=== PATIENT | female | born 1995 | race African-American/Black ===

== ENCOUNTER 2018-07-31 16:31 | Emergency (ER) | payer SELFPAY ==
--- NOTE | 2018-07-31 16:55 | ER Document Report ---
ED Medical Screen (RME) - General Chief Complaint: Vag Bleeding, +preg <12wks Stated Complaint: ABDOMINAL CRAMPING Time Seen by Provider: 07/31/18 16:49 Primary Care Provider: WALLACE HENRY MD [Primary Care Provider] - Follow up as needed Mode of Arrival: Ambulatory Information source: Patient Notes: Patient is a 23-year-old female who presents to the emergency department with complaints of low abdominal cramping. She states that she has had a positive test, states her last period was the end of May. Patient has not had any care yet as she states she just found out she was today. Patient also reports some white vaginal discharge that is not normal for her. She reports nausea over the last several weeks but denies any vomiting. Exam: Abdomen soft, nontender with no guarding and no rebound. I have greeted and performed a rapid initial assessment of this patient. A comprehensive ED assessment and evaluation of the patient, analysis of test results and completion of the medical decision making process will be conducted by additional ED providers. Dictation of this chart was performed using voice recognition software; therefore, there may be some unintended grammatical errors. TRAVEL OUTSIDE OF THE [place] IN LAST 30 DAYS: No - Related Data Allergies/Adverse Reactions: epinephrine [Epinephrine] Allergy (Verified 07/31/18 16:36) Past Medical History - Social History Drug Abuse: Marijuana Renal/ Medical History: Denies: Hx Peritoneal Dialysis Past Surgical History: Reports: Hx Orthopedic Surgery - Immunizations Hx Diphtheria, Pertussis, Tetanus Vaccination: Yes Physical Exam - Vital signs Vitals: Temp Pulse Resp BP Pulse Ox 98.3 F 69 16 122/52 L 100 07/31/18 16:40 07/31/18 16:40 07/31/18 16:40 07/31/18 16:40 07/31/18 16:40 Course - Vital Signs Vital signs: Temp Pulse Resp BP Pulse Ox 98.3 F 69 16 122/52 L 100 07/31/18 16:40 07/31/18 16:40 07/31/18 16:40 07/31/18 16:40 07/31/18 16:40 Doctor's Discharge - Discharge Referrals: WALLACE HENRY MD [Primary Care Provider] - Follow up as needed
[2018-07-31 17:26] LABS: ABSOLUTE BASOPHILS # (AUTO) 0.1 10^3/uL (0.0-0.2); ABSOLUTE EOSINOPHILS # (AUTO) 0.1 10^3/uL (0.0-0.6); ABSOLUTE LYMPHOCYTES (AUTO) 1.9 10^3/uL (0.5-4.7); ABSOLUTE MONOCYTES (AUTO) 0.3 10^3/uL (0.1-1.4); ABSOLUTE NEUT (AUTO) 3.6 10^3/uL (1.7-8.2); BASOPHILS % (AUTO) 1.1 % (0-2); EOSINOPHILS % (AUTO) 0.9 % (0-6); HEMATOCRIT 38.6 % (36.0-47.0); HEMOGLOBIN 13.1 g/dL (12.0-15.5); LYMPHOCYTES % (AUTO) 32.5 % (13-45); MEAN CORPUSCULAR HEMOGLOBIN 29.1 pg (27.0-33.4); MEAN CORPUSCULAR HGB CONC 33.8 g/dL (32.0-36.0); MEAN CORPUSCULAR VOLUME 86 fl (80-97); MONOCYTES % (AUTO) 4.6 % (3-13); PLATELET COUNT 297 10^3/uL (150-450); RED CELL DISTRIBUTION WIDTH 12.8 % (11.5-14.0); SEGMENTED NEUTROPHILS % (AUTO) 60.9 % (42-78); TOTAL CELLS COUNTED % (AUTO) 100 %; WHITE BLOOD COUNT 5.9 10^3/uL (4.0-10.5)
[2018-07-31 18:01] LABS: APPEARANCE,URINE SLIGHTLY-CLOUDY; BILIRUBIN,URINE NEGATIVE (NEGATIVE); COLOR,URINE YELLOW; GLUCOSE, URINE NEGATIVE (NEGATIVE); KETONES,URINE NEGATIVE (NEGATIVE); LEUKOCYTE ESTERASE,URINE NEGATIVE (NEGATIVE); NITRITE,URINE NEGATIVE (NEGATIVE); PROTEIN,URINE NEGATIVE (NEGATIVE); URINE SPECIFIC GRAVITY 1.023
--- NOTE | 2018-07-31 18:46 | ER Document Report ---
Addendum entered and electronically signed by SARAH PINK PA-C 07/31/18 21:01: Discharge - Discharge Clinical Impression: Pelvic cramping, First trimester Condition: Good Disposition: HOME, SELF-CARE Instructions: Pelvic Pain in and Round Ligament Pain ([facility]) Additional Instructions: Please arrange for follow-up in [place] with sugar sampler. He will likely need your levels checked within 3-5 days but they may elect to wait even later. Forms: Special Work Note Referrals: WALLACE HENRY MD [ACTIVE STAFF] - Follow up as needed Original Note: ED General - General Chief Complaint: Vag Bleeding, +preg <12wks Stated Complaint: ABDOMINAL CRAMPING Time Seen by Provider: 07/31/18 16:49 Primary Care Provider: WALLACE HENRY MD [ACTIVE STAFF] - Follow up as needed Mode of Arrival: Ambulatory TRAVEL OUTSIDE OF THE [place] IN LAST 30 DAYS: No - HPI Patient complains to provider of: Abdominal cramping, positive test, early Onset: Yesterday Onset/Duration: Gradual Quality of pain: Cramping Severity: Mild Pain Level: 1 Associated symptoms: denies: Chills, Fever Exacerbated by: Denies Relieved by: Denies Similar symptoms previously: No Recently seen / treated by doctor: No Notes: 23-year-old -[place] female coming in today with lower pelvic cramping and a positive test. Denies vaginal bleeding. - Related Data Allergies/Adverse Reactions: epinephrine [Epinephrine] Allergy (Verified 07/31/18 16:36) Past Medical History - General Information source: Patient - Social History Smoking Status: Current Some Day Smoker Drug Abuse: Marijuana Family History: Reviewed & Not Pertinent Patient has suicidal ideation: No Patient has homicidal ideation: No Renal/ Medical History: Denies: Hx Peritoneal Dialysis Past Surgical History: Reports: Hx Orthopedic Surgery - Immunizations Hx Diphtheria, Pertussis, Tetanus Vaccination: Yes Review of Systems - Review of Systems Notes: Constitutional: No fevers. No chills. EENT: No eye redness. No eye pain. No ear pain. No sore throat. Cardiovascular: No chest pain. No palpitations. Respiratory: No cough. No shortness of breath. No respiratory distress. Gastrointestinal: No abdominal pain. No nausea, vomiting, or diarrhea. Genitourinary: Positive for pelvic cramping. Negative for vaginal bleeding Musculoskeletal: Atraumatic. No swelling. No deformities. Skin: No rash or lesions. Lymphatic: No swollen lymph nodes. Neurologic: No headache. No syncope. Psychiatric: No suicidal or homicidal ideation. Physical Exam - Vital signs Vitals: Temp Pulse Resp BP Pulse Ox 98.3 F 69 16 122/52 L 100 07/31/18 16:40 07/31/18 16:40 07/31/18 16:40 07/31/18 16:40 07/31/18 16:40 - Notes Notes: General: Well-developed, well-nourished. In no acute distress. Non-toxic appearing. Cardiac: Well-perfused. Regular rate and rhythm. No murmurs, rubs, or gallops. Pulmonary: No respiratory distress. No cyanosis. Bilateral lung fiels are clear to auscultation. Abdominal: Non-distended. Non-rigid. Bowels sounds are present in all four quadrants. No guarding or rebound. HEENT: Head is atraumatic. Conjunctivae not reddened. No tearing. PERRL. EOMI. Orbits atraumatic. No periorbital swelling or erythema. Oropharynx is without erythema, swelling, or exudates. Neck: Supple. No adenopathy. No meningismus. Dermatologic: Warm with good turgor. No rash. Atraumatic. Chest: Atraumatic. No chest wall tenderness to palpation. Musculoskeletal: Moves all extremities well. No range of motion deficits. no muscular or joint tenderness. No paraspinal muscle tenderness. no midline spinal tenderness or step-off. Genitourinary: Chaperoned by Clara. External genitalia normal. Speculum exam reveals small amount of white colored vaginal discharge. Cervix is noninflamed. Bimanual exam reveals no adnexal masses or tenderness. No cervical motion tenderness is present. Neurologic: No gross neurologic deficits. Psychiatric: Normal mood. Course - Re-evaluation Re-evalutation: 07/31/18 18:44 Had a long discussion with the patient about her extremely low hCG. Most likely not going to see anything today, but will check and see if there is any indication of intrauterine evidence. Ectopic is still on the differential and the patient is aware. 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 She understands that because of the low level of hCG that it will probably take several days for her numbers to be high enough to identify definite . 07/31/18 20:44 There is a thickened endometrium but no gestational sac, as we expected probably too early to see this. 07/31/18 20:45 Wet mount does not look suggestive of anything in particular. Clinically, patient does not have an STD and definitely does not have PID. She does understand that she will need to have this hCG level rechecked. Given that she lives in [place], she will call up there to set up an appointment in the next 3-5 days to get her hCG level rechecked or whenever the sugar sampler wants her to get it rechecked and to get a follow-up ultrasound. - Vital Signs Vital signs: Temp Pulse Resp BP Pulse Ox 98.3 F 69 16 122/52 L 100 07/31/18 16:40 07/31/18 16:40 07/31/18 16:40 07/31/18 16:40 07/31/18 16:40 - Laboratory Result Diagrams: 07/31/18 17:01 Laboratory results interpreted by me: 07/31/18 07/31/18 16:59 17:27 Beta HCG, Quant 108.87 H Urine Urobilinogen 2.0 H Discharge - Discharge Clinical Impression: Pelvic cramping, First trimester Condition: Good Disposition: HOME, SELF-CARE Instructions: Pelvic Pain in and Round Ligament Pain ([facility]) Additional Instructions: Please arrange for follow-up in [place] with sugar sampler. He will likely need your levels checked within 3-5 days but they may elect to wait even later. Referrals: WALLACE HENRY MD [ACTIVE STAFF] - Follow up as needed
[2018-07-31 18:52] LABS: BACTERIA (WET MOUNT) 3+ BACTERIA SEEN; RBCS (WET MOUNT) RARE RBCS SEEN; T.VAGINALIS (WET MOUNT) NO TRICHOMONAS SEEN; WBCS (WET MOUNT) FEW WBCS SEEN; YEAST (WET MOUNT) NO YEAST SEEN
[2018-07-31 20:18] LABS: CHLAM PCR NOT DETECTED (NOT DETECT); GON PCR NOT DETECTED (NOT DETECT)
--- NOTE | 2018-07-31 20:36 | RADIOLOGY REPORT (SQ) ---
EXAM DESCRIPTION: [facility]: US TRANSVAGINAL CLINICAL HISTORY: 23 years Female; crampng early preg Beta-hCG 108 TECHNIQUE: endovaginal pelvic ultrasound was performed. COMPARISON: None. FINDINGS: Uterus: 8 x 4.1 x 5.4 cm The endometrial canal is maximum 2 cm thick. However, no gestational sac or other discrete endometrial structures are identified. Cervix is 3.5 cm long. Right ovary: 3.8 x 2.1 x 5.2 cm with a 1.1 x 0.7 x 1 cm dominant follicle. Normal vascular flow on Doppler. Left ovary: 2.7 x 2.3 x 2.1 cm. Normal vascular flow on Doppler. No free fluid. No adnexal masses. IMPRESSION: 1. Endometrial canal is thickened, but no gestational sac is identified. Based on beta-hCG, this is likely too early to visualize a gestational sac. 2. No adnexal masses. No ovarian torsion.
[2018-07-31 21:07] VITALS: BP 109/64
== END 2018-07-31 21:08 | disposition home or self-care (01) ==
LOC: ER 16:31
DX: O26.891 Other specified pregnancy related conditions, first trimester (principal); R10.2 Pelvic and perineal pain; O99.331 Smoking (tobacco) complicating pregnancy, first trimester; O99.321 Drug use complicating pregnancy, first trimester; F12.10 Cannabis abuse, uncomplicated; Z3A.00 Weeks of gestation of pregnancy not specified; Z88.8 Allergy status to other drugs, medicaments and biological substances
CPT/HCPCS: 36415; 76817; 81001; 84702; 85025; 87210; 87491; 87591; 93976; 99284

== ENCOUNTER → 2018-11-26 | Outpatient (CLI) | payer SELFPAY ==
--- NOTE | 2018-11-26 16:09 | RADIOLOGY REPORT (SQ) ---
EXAM DESCRIPTION: U/S OB 14+ TRNABD 1GES W/O DOP COMPLETED DATE/TIME: 11/26/2018 3:46 pm REASON FOR STUDY: Z34.02 ENCNTR FOR SUPRVSN OF NORMAL FIRST PREG, SECOND TRIMESTER Z34.02 ENCNTR FO R SUPRVSN OF NORMAL FIRST PREG, SECOND TRIME 20 weeks 5 days to COMPARISON: None. TECHNIQUE: Static and Dynamic grayscale imaging performed of gravid uterus using transabdominal appr oach. Additional selected color Doppler and spectral images recorded. All stored on PACS. LIMITATIONS: None. FINDINGS: FETUSES SEEN:1 EGA: 21 weeks 2 days Calculated using BPD,FL,HC,AC documented on images. No discrepancy with clinica l dates. EDGARD: 04/06/2019 EFW: 449 grams PERCENTILE: 9th LVP: 4.7 cm PLACENTA: Posterior. GRADE: I PRESENTATION: Cephalic. ANATOMY: HEART RATE: 150 beats per minute. FOUR CHAMBER HEART: Visualized. THREE VESSEL CORD: Yes. CORD INSERTION: Visualized. KIDNEYS AND BLADDER: Visualized. Appear normal. STOMACH: Visualized. Appears normal. SPINE: Normal as visualized. BRAIN AND LATERAL VENTRICLES: Visualized. Appear normal. OTHER: No other significant finding. MATERNAL ADNEXA: Ovaries are normal. CERVICAL LENGTH: 2.6 cm. Closed. OTHER: No other significant finding. IMPRESSION: LIVING INTRAUTERINE . ESTIMATED GESTATIONAL AGE 21 weeks 2 days. NO VISUALIZED ANOMALIES. Trimester of : Second trimester - 13 weeks 1 day to 27 weeks 6 days. TECHNICAL DOCUMENTATION: JOB ID: [id number] [employer]- All Rights Reserved Reading location - IP/workstation name: [email or web address]
== END ==
LOC: RAD 14:50
PROVIDERS: ATTEND Midwife
DX: Z34.02 Encounter for supervision of normal first pregnancy, second trimester (principal)
CPT/HCPCS: 76805

== ENCOUNTER 2018-12-05 07:19 | Outpatient (CLI) | payer MEDICAID ==
[2018-12-05 08:17] LABS: AMORPHOUS SEDIMENT,URINE TRACE /HPF; APPEARANCE,URINE SLIGHTLY-CLOUDY; BILIRUBIN,URINE NEGATIVE (NEGATIVE); COLOR,URINE YELLOW; GLUCOSE, URINE NEGATIVE (NEGATIVE); KETONES,URINE NEGATIVE (NEGATIVE); LEUKOCYTE ESTERASE,URINE NEGATIVE (NEGATIVE); NITRITE,URINE NEGATIVE (NEGATIVE); PROTEIN,URINE NEGATIVE (NEGATIVE); URINE SPECIFIC GRAVITY 1.013; UROBILINOGEN,URINE NEGATIVE mg/dL (<2.0)
[2018-12-05 08:32] LABS: URINE AMPHETAMINES SCREEN NEGATIVE; URINE BARBITURATES SCREEN NEGATIVE; URINE BENZODIAZEPINES SCREEN NEGATIVE; URINE COCAINE SCREEN NEGATIVE; URINE MARIJUANA (THC) SCREEN NEGATIVE; URINE METHADONE SCREEN NEGATIVE; URINE PHENCYCLIDINE SCREEN NEGATIVE
[2018-12-05 09:37] LABS: ABSOLUTE EOSINOPHILS # (AUTO) 0.2 10^3/uL (0.0-0.6); ABSOLUTE LYMPHOCYTES (AUTO) 1.2 10^3/uL (0.5-4.7); ABSOLUTE MONOCYTES (AUTO) 0.4 10^3/uL (0.1-1.4); ABSOLUTE NEUT (AUTO) 5.5 10^3/uL (1.7-8.2); BASOPHILS % (AUTO) 0.4 % (0-2); EOSINOPHILS % (AUTO) 2.1 % (0-6); HEMATOCRIT 31.5 % (36.0-47.0); HEMOGLOBIN 10.9 g/dL (12.0-15.5); LYMPHOCYTES % (AUTO) 16.2 % (13-45); MEAN CORPUSCULAR HEMOGLOBIN 29.7 pg (27.0-33.4); MEAN CORPUSCULAR HGB CONC 34.6 g/dL (32.0-36.0); MEAN CORPUSCULAR VOLUME 86 fl (80-97); MONOCYTES % (AUTO) 5.7 % (3-13); PLATELET COUNT 231 10^3/uL (150-450); RED BLOOD COUNT 3.67 10^6/uL (3.72-5.28); RED CELL DISTRIBUTION WIDTH 13.5 % (11.5-14.0); SEGMENTED NEUTROPHILS % (AUTO) 75.6 % (42-78); TOTAL CELLS COUNTED % (AUTO) 100 %; WHITE BLOOD COUNT 7.2 10^3/uL (4.0-10.5)
--- NOTE | 2018-12-05 10:40 | RADIOLOGY REPORT (SQ) ---
EXAM DESCRIPTION: U/S ABDOMEN LIMITED W/O DOP COMPLETED DATE/TIME: 12/05/2018 10:23 am REASON FOR STUDY: RLQ abdominal pain/please eval appendix if possibl COMPARISON: None. TECHNIQUE: Static and real time ward scale imaging performed of the right lower quadrant with additi onal compression maneuvers. LIMITATIONS: None. FINDINGS: APPENDIX: Not visualized. BOWEL: Active peristalsis with fluid in the bowel. COMPRESSION MANEUVERS: No rebound pain with compression. OTHER: No other significant finding. IMPRESSION: APPENDIX NOT IDENTIFIED. ACTIVE PERISTALSIS. TECHNICAL DOCUMENTATION: JOB ID: [id number] [employer]- All Rights Reserved Reading location - IP/workstation name: [email or web address]
--- NOTE | 2018-12-05 10:41 | RADIOLOGY REPORT (SQ) ---
EXAM DESCRIPTION: U/S OB LIMITED COMPLETED DATE/TIME: 12/05/2018 10:23 am REASON FOR STUDY: cervical length COMPARISON: None. TECHNIQUE: Limited transabdominal grayscale ultrasound for evaluation of specific requested obstetri ophelia parameters. LIMITATIONS: None. FINDINGS: CERVICAL LENGTH: 4 cm Closed. AGGIE: 11.6 cm. FHR: 168 beats per minute. PRESENTATION: Cephalic. PLACENTA: Posterior ANATOMY: Not assessed OTHER: Gestational age 22 weeks 5 days IMPRESSION: LIMITED OBSTETRICAL ULTRASOUND WITH MEASURED PARAMETERS DELINEATED ABOVE. Trimester of : Second trimester - 13 weeks 1 day to 27 weeks 6 days. TECHNICAL DOCUMENTATION: JOB ID: [id number] [employer]- All Rights Reserved Reading location - IP/workstation name: [email or web address]
== END 2018-12-05 11:10 | disposition home or self-care (01) ==
LOC: LC 07:19
PROVIDERS: ATTEND Obstetrics & Gynecology
PROC: 4A1HXCZ Monitoring of Products of Conception, Cardiac Rate, External Approach (ICD-10-PCS; principal; 2018-12-05)
DX: O36.8120 Decreased fetal movements, second trimester, not applicable or unspecified (principal); Z3A.22 22 weeks gestation of pregnancy
CPT/HCPCS: 36415; 76705; 76815; 80307; 81001; 85025

== ENCOUNTER 2019-03-09 01:54 | Outpatient (CLI) | payer MEDICAID ==
[2019-03-09 02:33] LABS: APPEARANCE,URINE CLEAR; BILIRUBIN,URINE NEGATIVE (NEGATIVE); COLOR,URINE YELLOW; GLUCOSE, URINE NEGATIVE (NEGATIVE); KETONES,URINE NEGATIVE (NEGATIVE); LEUKOCYTE ESTERASE,URINE NEGATIVE (NEGATIVE); NITRITE,URINE NEGATIVE (NEGATIVE); PROTEIN,URINE NEGATIVE (NEGATIVE); URINE SPECIFIC GRAVITY 1.012; UROBILINOGEN,URINE NEGATIVE mg/dL (<2.0)
--- NOTE | 2019-03-09 02:39 | Non Stress Test Report ---
Non Stress Test Datetime Report Generated by CPN: 03/09/2019 02:39 DEMOGRAPHIC EGA NST: 35.3 EGA NST: 35.3 INDICATION Indication for Study (NST) Other: lc MONITORING Monitor Explained: Monitor Explained; Test Explained; Patient Verbalized Understanding Monitor Explained: Monitor Explained; Test Explained; Patient Verbalized Understanding Time on Monitor: 03/09/2019 02:15 Time on Monitor: 03/09/2019 02:15 Time off Monitor: 03/09/2019 02:35 Time off Monitor: 03/09/2019 02:35 NST Duration: 20 NST Duration: 20 NST INTERVENTIONS NST Interventions: PO Hydration; Reposition Patient Physician Notified NST: Dr Rogers BABY A: [id number] BABY A Movement : Present Movement : Present Contraction Frequency : 10 Contraction Frequency : 10-12 FHR Baseline : 120 FHR Baseline : 120 Accelerations : 15X15 Accelerations : 15X15 Decelerations : None Decelerations : None Variability : Moderate 6-25bpm Variability : Moderate 6-25bpm NST Review: Meets Criteria for Reactive NST NST Review: Meets Criteria for Reactive NST NST Review and Verified By : JANEY GutierrezT Results: Reactive NST Results: Reactive NST REPORT Report Trigger: Send Report
[2019-03-09 02:50] LABS: URINE AMPHETAMINES SCREEN NEGATIVE; URINE BARBITURATES SCREEN NEGATIVE; URINE BENZODIAZEPINES SCREEN NEGATIVE; URINE COCAINE SCREEN NEGATIVE; URINE MARIJUANA (THC) SCREEN NEGATIVE; URINE METHADONE SCREEN NEGATIVE; URINE PHENCYCLIDINE SCREEN NEGATIVE
== END 2019-03-09 03:05 | disposition home or self-care (01) ==
LOC: LC 01:54
PROVIDERS: ATTEND Obstetrics & Gynecology
PROC: 4A1HXCZ Monitoring of Products of Conception, Cardiac Rate, External Approach (ICD-10-PCS; principal; 2019-03-09)
DX: Z34.93 Encounter for supervision of normal pregnancy, unspecified, third trimester (principal); Z3A.35 35 weeks gestation of pregnancy
CPT/HCPCS: 59025; 80307; 81001; 84112

== ENCOUNTER 2019-03-10 11:09 | Outpatient (CLI) | payer MEDICAID ==
[2019-03-10 11:50] LABS: APPEARANCE,URINE CLEAR; BILIRUBIN,URINE NEGATIVE (NEGATIVE); COLOR,URINE YELLOW; GLUCOSE, URINE 50 mg/dL (NEGATIVE); KETONES,URINE NEGATIVE (NEGATIVE); LEUKOCYTE ESTERASE,URINE NEGATIVE (NEGATIVE); NITRITE,URINE NEGATIVE (NEGATIVE); PROTEIN,URINE NEGATIVE (NEGATIVE); URINE SPECIFIC GRAVITY 1.006; UROBILINOGEN,URINE NEGATIVE mg/dL (<2.0)
[2019-03-10 12:07] LABS: URINE AMPHETAMINES SCREEN NEGATIVE; URINE BARBITURATES SCREEN NEGATIVE; URINE BENZODIAZEPINES SCREEN NEGATIVE; URINE COCAINE SCREEN NEGATIVE; URINE MARIJUANA (THC) SCREEN NEGATIVE; URINE METHADONE SCREEN NEGATIVE; URINE PHENCYCLIDINE SCREEN NEGATIVE
[2019-03-10 12:17] LABS: ABSOLUTE EOSINOPHILS # (AUTO) 0.1 10^3/uL (0.0-0.6); ABSOLUTE LYMPHOCYTES (AUTO) 1.2 10^3/uL (0.5-4.7); ABSOLUTE MONOCYTES (AUTO) 0.5 10^3/uL (0.1-1.4); BASOPHILS % (AUTO) 0.3 % (0-2); EOSINOPHILS % (AUTO) 1.2 % (0-6); HEMATOCRIT 38.4 % (36.0-47.0); LYMPHOCYTES % (AUTO) 18.1 % (13-45); MEAN CORPUSCULAR HEMOGLOBIN 29.9 pg (27.0-33.4); MEAN CORPUSCULAR HGB CONC 33.9 g/dL (32.0-36.0); MEAN CORPUSCULAR VOLUME 88 fl (80-97); MONOCYTES % (AUTO) 7.2 % (3-13); PLATELET COUNT 225 10^3/uL (150-450); RED BLOOD COUNT 4.35 10^6/uL (3.72-5.28); RED CELL DISTRIBUTION WIDTH 13.6 % (11.5-14.0); SEGMENTED NEUTROPHILS % (AUTO) 73.2 % (42-78); TOTAL CELLS COUNTED % (AUTO) 100 %; WHITE BLOOD COUNT 6.9 10^3/uL (4.0-10.5)
--- NOTE | 2019-03-10 12:50 | Non Stress Test Report ---
Non Stress Test Datetime Report Generated by CPN: 03/10/2019 12:50 DEMOGRAPHIC EGA NST: 35.4 INDICATION Indication for Study (NST) Other: LABOR CHECK VITAL SIGNS Temperature - NST: 98.4 Pulse - NST: 77 RESP - NST: 18 NBPSYS NST: 105 NBPDIA NST: 52 MONITORING Monitor Explained: Monitor Explained; Test Explained; Patient Verbalized Understanding Time on Monitor: 03/10/2019 11:38 Time off Monitor: 03/10/2019 12:27 NST Duration: 49 NST INTERVENTIONS NST Interventions: PO Hydration; Reposition Patient Physician Notified NST: P Carreno CNM BABY A: [id number] BABY A Movement : Present Contraction Frequency : IRREG FHR Baseline : 135 Accelerations : 15X15 Decelerations : None Variability : Moderate 6-25bpm NST Review: Meets Criteria for Reactive NST NST Review and Verified By : Prachi Olvrea RNC NST Results: Reactive NST REPORT Report Trigger: Send Report
== END 2019-03-10 12:40 | disposition home or self-care (01) ==
LOC: LC 11:09
PROVIDERS: ATTEND Obstetrics & Gynecology Gynecology
PROC: 4A1HXCZ Monitoring of Products of Conception, Cardiac Rate, External Approach (ICD-10-PCS; principal; 2019-03-10)
DX: O26.893 Other specified pregnancy related conditions, third trimester (principal); R10.31 Right lower quadrant pain; Z3A.35 35 weeks gestation of pregnancy
CPT/HCPCS: 36415; 59025; 80307; 81001; 85025

== ENCOUNTER 2019-03-23 14:15 | Outpatient (CLI) | payer MEDICAID ==
[2019-03-23 15:24] LABS: APPEARANCE,URINE CLEAR; BILIRUBIN,URINE NEGATIVE (NEGATIVE); COLOR,URINE YELLOW; GLUCOSE, URINE NEGATIVE (NEGATIVE); KETONES,URINE NEGATIVE (NEGATIVE); LEUKOCYTE ESTERASE,URINE NEGATIVE (NEGATIVE); NITRITE,URINE NEGATIVE (NEGATIVE); PROTEIN,URINE NEGATIVE (NEGATIVE); URINE SPECIFIC GRAVITY 1.011; UROBILINOGEN,URINE NEGATIVE mg/dL (<2.0)
[2019-03-23 15:24] LABS: BACTERIA (WET MOUNT) 4+ BACTERIA SEEN; EPITHELIALS (WET MOUNT) 4+ EPITHELIALS SEEN; RBCS (WET MOUNT) FEW RBCS SEEN; T.VAGINALIS (WET MOUNT) COULD NOT PERFORM; WBCS (WET MOUNT) FEW WBCS SEEN; YEAST (WET MOUNT) NO YEAST SEEN
[2019-03-23 15:41] LABS: URINE AMPHETAMINES SCREEN NEGATIVE; URINE BARBITURATES SCREEN NEGATIVE; URINE BENZODIAZEPINES SCREEN NEGATIVE; URINE COCAINE SCREEN NEGATIVE; URINE MARIJUANA (THC) SCREEN NEGATIVE; URINE METHADONE SCREEN NEGATIVE; URINE PHENCYCLIDINE SCREEN NEGATIVE
--- NOTE | 2019-03-23 15:46 | Non Stress Test Report ---
Non Stress Test Datetime Report Generated by CPN: 03/23/2019 15:46 DEMOGRAPHIC EGA NST: 37.3 INDICATION Indication for Study (NST) Other: iup 37.3 weeks vaginal bleeding MONITORING Monitor Explained: Monitor Explained; Test Explained; Patient Verbalized Understanding Time on Monitor: 03/23/2019 14:45 NST INTERVENTIONS NST Interventions: PO Hydration Physician Notified NST: Dr Younger BABY A: [id number] BABY A Movement : Present Contraction Frequency : x1 FHR Baseline : 120 Accelerations : 15X15 Decelerations : None Variability : Moderate 6-25bpm NST Review: Meets Criteria for Reactive NST NST Review and Verified By : farhat woods NST Results: Reactive NST REPORT Report Trigger: Send Report
== END 2019-03-23 16:17 | disposition home or self-care (01) ==
LOC: LC 14:15
PROVIDERS: ATTEND Obstetrics & Gynecology
PROC: 4A1HXCZ Monitoring of Products of Conception, Cardiac Rate, External Approach (ICD-10-PCS; principal; 2019-03-23)
DX: O46.93 Antepartum hemorrhage, unspecified, third trimester (principal); Z3A.37 37 weeks gestation of pregnancy
CPT/HCPCS: 59025; 80307; 81005; 84112; 87210

== ENCOUNTER 2019-03-24 21:19 | Outpatient (CLI) | payer MEDICAID ==
--- NOTE | 2019-03-24 22:00 | Non Stress Test Report ---
Non Stress Test Datetime Report Generated by CPN: 03/24/2019 22:00 DEMOGRAPHIC EGA NST: 37.4 INDICATION Indication for Study (NST) Other: LABOR CHECK MONITORING Monitor Explained: Monitor Explained; Test Explained; Patient Verbalized Understanding Time on Monitor: 03/24/2019 21:37 Time off Monitor: 03/24/2019 21:57 NST Duration: 20 NST INTERVENTIONS NST Interventions: PO Hydration Physician Notified NST: Dr. Rogers BABY A: [id number] BABY A Movement : Present Contraction Frequency : irreg FHR Baseline : 130 Accelerations : 15X15 Decelerations : None Variability : Moderate 6-25bpm NST Review: Meets Criteria for Reactive NST NST Review and Verified By : Isadora Huizar RN NST Results: Reactive NST REPORT Report Trigger: Send Report
[2019-03-24 22:08] LABS: APPEARANCE,URINE CLEAR; BILIRUBIN,URINE NEGATIVE (NEGATIVE); COLOR,URINE YELLOW; GLUCOSE, URINE NEGATIVE (NEGATIVE); KETONES,URINE NEGATIVE (NEGATIVE); LEUKOCYTE ESTERASE,URINE NEGATIVE (NEGATIVE); NITRITE,URINE NEGATIVE (NEGATIVE); PROTEIN,URINE NEGATIVE (NEGATIVE); URINE SPECIFIC GRAVITY 1.011; UROBILINOGEN,URINE NEGATIVE mg/dL (<2.0)
[2019-03-24] MEDS ORDERED: HYDROXYZINE PAMOATE 50 MG CAPSULE PO ONE (22:20)
[2019-03-24] MEDS ORDERED: HYDROXYZINE PAMOATE 50 MG CAPSULE ONE (22:21)
[2019-03-24 22:25] LABS: URINE AMPHETAMINES SCREEN NEGATIVE; URINE BARBITURATES SCREEN NEGATIVE; URINE BENZODIAZEPINES SCREEN NEGATIVE; URINE COCAINE SCREEN NEGATIVE; URINE MARIJUANA (THC) SCREEN NEGATIVE; URINE METHADONE SCREEN NEGATIVE; URINE PHENCYCLIDINE SCREEN NEGATIVE
== END 2019-03-24 22:45 | disposition home or self-care (01) ==
LOC: LC 21:19
PROVIDERS: ATTEND Obstetrics & Gynecology
PROC: 4A1HXCZ Monitoring of Products of Conception, Cardiac Rate, External Approach (ICD-10-PCS; principal; 2019-03-24)
DX: O47.1 False labor at or after 37 completed weeks of gestation (principal); Z3A.37 37 weeks gestation of pregnancy
CPT/HCPCS: 59025; 81005; 80307; J3490

== ENCOUNTER 2019-03-25 09:06 | Outpatient (CLI) | payer MEDICAID ==
[2019-03-25 10:19] LABS: APPEARANCE,URINE SLIGHTLY-CLOUDY; BILIRUBIN,URINE NEGATIVE (NEGATIVE); COLOR,URINE YELLOW; GLUCOSE, URINE NEGATIVE (NEGATIVE); KETONES,URINE 20 mg/dL (NEGATIVE); LEUKOCYTE ESTERASE,URINE NEGATIVE (NEGATIVE); NITRITE,URINE NEGATIVE (NEGATIVE); PROTEIN,URINE NEGATIVE (NEGATIVE); URINE SPECIFIC GRAVITY 1.011; UROBILINOGEN,URINE NEGATIVE mg/dL (<2.0)
[2019-03-25 10:39] LABS: URINE AMPHETAMINES SCREEN NEGATIVE; URINE BARBITURATES SCREEN NEGATIVE; URINE BENZODIAZEPINES SCREEN NEGATIVE; URINE COCAINE SCREEN NEGATIVE; URINE MARIJUANA (THC) SCREEN NEGATIVE; URINE METHADONE SCREEN NEGATIVE; URINE PHENCYCLIDINE SCREEN NEGATIVE
--- NOTE | 2019-03-25 10:58 | Non Stress Test Report ---
Non Stress Test Datetime Report Generated by CPN: 03/25/2019 10:58 DEMOGRAPHIC EGA NST: 37.5 MONITORING Monitor Explained: Monitor Explained; Test Explained; Patient Verbalized Understanding Time on Monitor: 03/25/2019 09:51 Time off Monitor: 03/25/2019 10:56 NST Duration: 65 NST INTERVENTIONS NST Interventions: None Physician Notified NST: Dr Norwood Physician Notified NST: Dr. Norwood BABY A: [id number] BABY A Movement : Present Contraction Frequency : 2-5 FHR Baseline : 135 Accelerations : 15X15 Decelerations : None Variability : Moderate 6-25bpm Variability : Moderate 6-25bpm NST Review: Meets Criteria for Reactive NST NST Review and Verified By : Deisy Knapp RN NST Results: Reactive NST REPORT Report Trigger: Send Report
[2019-03-25] MEDS ORDERED: MORPHINE SULFATE 10 MG/ML INJ IM ONE (11:16)
[2019-03-25] MEDS ORDERED: MORPHINE SULFATE INJ PF 10 MG/10 ML SDV ONE (11:22)
[2019-03-25] MEDS ORDERED: MORPHINE SULFATE 10 MG/ML INJ ONE (11:24)
== END 2019-03-25 11:47 | disposition home or self-care (01) ==
LOC: LC 09:06
PROVIDERS: ATTEND Obstetrics & Gynecology Gynecology
PROC: 4A1HXCZ Monitoring of Products of Conception, Cardiac Rate, External Approach (ICD-10-PCS; principal; 2019-03-25)
DX: O47.1 False labor at or after 37 completed weeks of gestation (principal); Z3A.37 37 weeks gestation of pregnancy
CPT/HCPCS: 59025; 81005; 80307; J2270; J2274

== ENCOUNTER 2019-03-25 21:56 | Inpatient (IN) | payer MEDICAID ==
[2019-03-25 23:24] LABS: APPEARANCE,URINE SLIGHTLY-CLOUDY; BILIRUBIN,URINE NEGATIVE (NEGATIVE); COLOR,URINE YELLOW; GLUCOSE, URINE 50 mg/dL (NEGATIVE); KETONES,URINE NEGATIVE (NEGATIVE); LEUKOCYTE ESTERASE,URINE NEGATIVE (NEGATIVE); NITRITE,URINE NEGATIVE (NEGATIVE); PROTEIN,URINE 30 mg/dL (NEGATIVE); URINE SPECIFIC GRAVITY 1.012; UROBILINOGEN,URINE NEGATIVE mg/dL (<2.0)
[2019-03-25 23:40] LABS: URINE AMPHETAMINES SCREEN NEGATIVE; URINE BARBITURATES SCREEN NEGATIVE; URINE BENZODIAZEPINES SCREEN NEGATIVE; URINE COCAINE SCREEN NEGATIVE; URINE MARIJUANA (THC) SCREEN NEGATIVE; URINE METHADONE SCREEN NEGATIVE; URINE PHENCYCLIDINE SCREEN NEGATIVE
[2019-03-26] MEDS ORDERED: OXYTOCIN 10 UNIT/ML VIAL ONE (02:57)
[2019-03-26] MEDS ORDERED: OXYTOCIN/NORMAL SALINE 20 UNIT/1,000 ML RTUINJ ONE ×2 (02:58→10:40)
[2019-03-26] MEDS ORDERED: LIDOCAINE 1% INJ-PF (10 MG/ML) 30 ML SDV ONE (02:58)
[2019-03-26] MEDS ORDERED: MISOPROSTOL 0.2 MG TABLET ONE (02:58)
[2019-03-26] MEDS: RINGERS SOLUTION,LACTATED 1,000 ML IV PRN ×2 (03:00→06:04)
[2019-03-26 03:28] LABS: ABSOLUTE BASOPHILS # (AUTO) 0.1 10^3/uL (0.0-0.2); ABSOLUTE MONOCYTES (AUTO) 0.5 10^3/uL (0.1-1.4); ABSOLUTE NEUT (AUTO) 12.3 10^3/uL (1.7-8.2); BASOPHILS % (AUTO) 0.4 % (0-2); EOSINOPHILS % (AUTO) 0.1 % (0-6); HEMATOCRIT 41.6 % (36.0-47.0); MEAN CORPUSCULAR HGB CONC 33.8 g/dL (32.0-36.0); MEAN CORPUSCULAR VOLUME 89 fl (80-97); MONOCYTES % (AUTO) 3.5 % (3-13); PLATELET COUNT 222 10^3/uL (150-450); RED BLOOD COUNT 4.67 10^6/uL (3.72-5.28); RED CELL DISTRIBUTION WIDTH 13.7 % (11.5-14.0); TOTAL CELLS COUNTED % (AUTO) 100 %; WHITE BLOOD COUNT 13.8 10^3/uL (4.0-10.5)
[2019-03-26] MEDS ORDERED: FENTANYL CITRATE INJ/PF 100 MCG/2 ML AMPUL ONE (03:33)
[2019-03-26] MEDS ORDERED: PHENYLEPHRINE HCL INJ/PF 10 MG/1 ML SDV ONE (03:33)
[2019-03-26] MEDS ORDERED: EPHEDRINE SULFATE INJ 50 MG/1 ML AMPULE ONE (03:33)
[2019-03-26] MEDS ORDERED: FENTANYL/BUPIVACAINE/NS/PF 300 MCG/150 ML RTUINJ EPI ONE (03:34)
[2019-03-26] MEDS ORDERED: BUPIVACAINE HCL 0.25 % INJ/PF (2.5 MG/1 ML) 30 ML VIAL ONE (03:34)
--- NOTE | 2019-03-26 03:53 | Admission Physical ---
Datetime Report Generated by CPN: 03/26/2019 03:53 CURRENT ADMISSION Chief Complaint: Uterine Contractions Indication for Induction: Not Applicable Admit Impression : Term, Intrauterine Admit Plan: Initiate Labor Protocol ALLERGIES Medication Allergies: Yes Medication Allergies: epinephrine (03/25/2019) Latex: No Latex Allergies Food Allergies: none Environmental Allergies: none OBSTETRICAL HISTORY EDC: 04/10/2019 00:00 : 1 Para: 0 Term: 0 : 0 SAB: 0 IAB: 0 Ectopic: 0 Livin Cesareans: 0 VBACs: 0 Multiple Births: 0 Gestational Diabetes: No Rh Sensitization: No Incompetent Cervix: No KORTNEY: No Infertility: No ART Treatment: No Uterine Anomaly: No IUGR: No Hx Previous C/S: No Macrosomia: No Hx Loss/Stillborn: No PIH: No Hx : No Placenta Previa/Abruption: No Depression/PP Depression: No PTL/PROM: No Post Hemorrhage: No Current Procedures: Ultrasound; NST Obstetrical History Comments: G1: current , anemia and low vit D3 SEE RECORDS Alcohol: No Alcohol Comments: alcohol use ended after 6th week of Marijuana : No Cocaine: No Other Illicit Drugs: No Cigarettes: Never Smoker. 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 Surgery: No Heart Disease: No Hosp/Surgery: Yes Autoimmune Disorder: No Anesthetic Complications: No Kidney Disease: Yes Abnormal Pap Smear: No Neuro/Epilepsy: No Psychiatric Disorders: No Other Medical Diseases: No Hepatitis/Liver Disease: No Significant Family History: No Varicosities/Phlebitis: No Trauma/Violence : No Thyroid Dysfunction: No Medical History Comments: frequent UTI, right knee 2011 INFECTIOUS HISTORY Gonorrhea: No Genital Herpes: Yes Chlamydia: No Tuberculosis: No Syphilis: No Hepatitis: No HIV/AIDS Exposure: No Rash or Viral Illness: No HPV: No Infectious History Comments: takes valtrex PHYSICAL EXAM General: Normal HEENT: Normal Neurologic: Normal Thyroid: Normal Heart: Normal Lungs: Normal Breast: Deferred Back: Normal Abdomen: Normal Genitourinary Exam: Normal Extremities: Normal DTRs: Normal Pelvic Type: Adequate FETUS A EGA: 37.6 Monitoring: External US PLANS FOR LABOR AND DELIVERY Labor and Delivery: None Pain Management: None Other Pain Management Plans: would like natural but it open Feeding Preference: Breast Benefit of Breast Feed Discussed: Yes Circumcision: N/A INFORMED CONSENT Signature: with User ID: [email or web address]
[2019-03-26] MEDS: OXYTOCIN/NORMAL SALINE 20 UNIT/1,000 ML RTUINJ IV PRN ×2 (08:53→10:45)
[2019-03-26] MEDS ORDERED: GLYCERIN/WITCH HAZEL LEAF 1 EACH MED..WIPE TP PRN (09:10)
[2019-03-26] MEDS ORDERED: MEASLES,MUMPS&RUBELLA VACC/PF 0.5 ML VIAL SUBCUT PRN (09:10)
[2019-03-26] MEDS ORDERED: MAGNESIUM HYDROXIDE SUSP 30 ML UDCUP PO PRN (09:10)
[2019-03-26] MEDS ORDERED: PSEUDOEPHEDRINE HCL 30 MG TABLET PO PRN (09:10)
[2019-03-26] MEDS ORDERED: PROMETHAZINE HCL 25 MG TABLET PO PRN (09:10)
[2019-03-26] MEDS ORDERED: PROMETHAZINE HCL 25 MG SUPP.RECT PR PRN (09:10)
[2019-03-26] MEDS ORDERED: DIPH/PERTUSS(ACELL)/TETANUS VAC/PF 0.5 ML SYR (>=10YO) IM PRN (09:10)
[2019-03-26] MEDS ORDERED: ACETAMINOPHEN WITH CODEINE #3 TABLET PO PRN (09:10)
[2019-03-26] MEDS ORDERED: BENZOCAINE/MENTHOL AEROSOL SPRAY 56 ML TOP PRN (09:10)
[2019-03-26] MEDS ORDERED: DIBUCAINE 1% OINTMENT 56 GM TP PRN (09:10)
[2019-03-26] MEDS ORDERED: ACETAMINOPHEN 650 MG SUPP.RECT PR PRN (09:10)
[2019-03-26] MEDS ORDERED: ZOLPIDEM TARTRATE 5 MG TABLET PO PRN (09:10)
[2019-03-26] MEDS ORDERED: DIPHENHYDRAMINE HCL 25 MG CAPSULE PO PRN (09:10)
[2019-03-26] MEDS ORDERED: PROMETHAZINE HCL INJ 25 MG/1 ML VIAL IV PRN (09:10)
[2019-03-26] MEDS ORDERED: NA PHOS,M-B/NA PHOS,DI-BA (ADULT) 133 ML ENEMA PR PRN (09:10)
--- NOTE | 2019-03-26 10:55 | Delivery Summary ---
Del Sum A-C Datetime Report Generated by CPN: 03/26/2019 10:55 DELIVERY PERSONNEL DELIVERY PERSONNEL: [id number] Delivery Doctor:: Halie Rogers MD Labor and Delivery Nurse:: Bess Manley RNtruck rental clerk Nurse:: Ann-Marie Garcia RN Patient Care Associate/IMMUNOHEMATOLOGIST: Sejal Dietz, YARD FOREMAN MATERNAL INFORMATION Delivery Anesthesia: Epidural Medications After Delivery: Pitocin Drip 20 Units/1000ml NSS Meds After Delivery Comment: post placenta bolus Estimated Blood Loss (ml): 250 Delivery QBL: 250 Maternal Complications: None LABOR SUMMARY EDC: 04/10/2019 00:00 No. Babies in Womb: 1 Attempted: No Labor Anesthesia: Epidural LABOR INFORMATION Reason for Induction: Not Applicable Onset of Labor: 03/25/2019 22:00 Complete Dilatation: 03/26/2019 05:46 Group B Beta Strep: negative Steroids Given: None Reason Steroids Not Administered: Not Applicable MEMBRANES Membranes Rupture Method: Spontaneous Rupture of Membranes: 03/26/2019 04:43 Length of Rupture (hr): 4.07 Amniotic Fluid Color: Clear Amniotic Fluid Amount: Moderate Amniotic Fluid Odor: Normal STAGES OF LABOR Stage 1 hr: 7 Stage 1 min: 46 Stage 2 hr: 3 Stage 2 min: 1 Stage 3 hr: 0 Stage 3 min: 6 Total Time in Labor hr: 10 Total Time in Labor min: 53 VAGINAL DELIVERY Episiotomy: None Laceration #1: Periurethral Laceration Extension #1: N/A Laceration #2: None Laceration Extension #2: N/A Laceration #3: None Laceration Extension #3: N/A Laceration Repair: Yes Laceration Repair Note: small skin break repaired with one 3-0 chromic suture. Sponge Count Correct: Vaginal Sweep Performed Sharps Count Correct: Yes BABY A INFORMATION Delivery Date/Time: 03/26/2019 08:47 Method of Delivery: Vaginal Born in Route : No : N/A Forceps: N/A Vacuum Extraction: N/A Shoulder Dystocia : No PRESENTATION/POSITION BABY A Presentation: Unable to Assess Cephalic Presentation: Vertex Vertex Position: Right Occipital Anterior Breech Presentation: N/A PLACENTA INFORMATION BABY A Placenta Delivery Time : 03/26/2019 08:53 Placenta Method of Delivery: Spontaneous Placenta Status: Delivered SCORES BABY A Heart Rate 1 min: >100 bpm Resp Effort 1 min: Good Cry Reflex Irritability 1 min: Cough or Sneeze or Pulls Away Muscle Tone 1 min: Active Motion Color 1 min: Blue/Pale Resuscitation Effort 1 min: Tactile Stimulation SCORE 1 MIN: 8 Heart Rate 5 min: >100 bpm Resp Effort 5 min: Good Cry Reflex Irritability 5 min: Cough or Sneeze or Pulls Away Muscle Tone 5 min: Active Motion Color 5 min: Body Benavides, Extremities Blue Resuscitation Effort 5 min: Tactile Stimulation SCORE 5 MIN: 9 INFORMATION BABY A Gestational Age at Delivery: 37.5 Gestational Status: Early Term- 37- 38.6 Weeks Infant Outcome : Liveborn Condition : Stable Infant Sex: Female IDENTIFICATION BABY A Infant Verification Date/Time: 03/26/2019 08:47 ID Band Number: [id number] Mother's Name Verified: Yes RN Verifying Infant: H. Radha, RN and J Vineet RN WEIGHT/LENGTH BABY A Infant Birthweight (gm): 3180 Infant Weight (lb): 7 Weight (oz): 0 Infant Length (in): 19.00 Length (cm): 48.26 CORD INFORMATION BABY A No. Cord Vessels: 3 Nuchal Cord : N/A Cord Blood Taken: Yes-For Storage (Mom's Blood type +) Infant Suction: None ASSESSMENT BABY A Infant Complications: None Physical Findings at Delivery: Within Normal Limits Infant Respirations: Appears Normal Transferred To: Remains with Mother SIGNATURES Signature: with User ID: [email or web address]
[2019-03-26] MEDS: ACETAMINOPHEN WITH CODEINE #3 TABLET PO PRN ×2 (11:35→16:42)
[2019-03-26] MEDS: FAMOTIDINE 20 MG TABLET PO SCH ×2 (13:25→21:19)
[2019-03-26] MEDS: SENNOSIDES/DOCUSATE 8.6-50 MG 1 EACH TABLET PO SCH (13:25)
[2019-03-26] MEDS: FERROUS SULFATE 325 MG TABLET PO SCH ×2 (13:25→17:23)
[2019-03-26] MEDS: PRENATAL VITAMIN W DHA CAPSULE PO SCH (13:25)
[2019-03-26] MEDS: DOCUSATE SODIUM 100 MG CAPSULE PO SCH ×2 (13:26→17:23)
[2019-03-26] MEDS: IBUPROFEN 800 MG TABLET PO SCH ×2 (13:28→21:19)
[2019-03-27] MEDS: IBUPROFEN 800 MG TABLET PO SCH ×3 (05:56→22:37)
[2019-03-27 07:06] LABS: HEMATOCRIT 37.2 % (36.0-47.0); HEMOGLOBIN 12.7 g/dL (12.0-15.5); MEAN CORPUSCULAR HEMOGLOBIN 30.6 pg (27.0-33.4); MEAN CORPUSCULAR HGB CONC 34.2 g/dL (32.0-36.0); MEAN CORPUSCULAR VOLUME 90 fl (80-97); PLATELET COUNT 191 10^3/uL (150-450); RED BLOOD COUNT 4.15 10^6/uL (3.72-5.28); RED CELL DISTRIBUTION WIDTH 13.7 % (11.5-14.0); WHITE BLOOD COUNT 9.6 10^3/uL (4.0-10.5)
[2019-03-27] MEDS: FERROUS SULFATE 325 MG TABLET PO SCH ×2 (09:45→17:08)
[2019-03-27] MEDS: FAMOTIDINE 20 MG TABLET PO SCH ×2 (09:45→22:37)
[2019-03-27] MEDS: PRENATAL VITAMIN W DHA CAPSULE PO SCH (09:45)
[2019-03-27] MEDS: DOCUSATE SODIUM 100 MG CAPSULE PO SCH ×2 (09:45→17:08)
[2019-03-27] MEDS: SENNOSIDES/DOCUSATE 8.6-50 MG 1 EACH TABLET PO SCH (09:45)
--- NOTE | 2019-03-27 10:48 | PDOC PROGRESS REPORT ---
Subjective-OB Progress Note for:: 03/27/19 Subjective: Pt doing well, no concerns. She reports light bleeding, reg diet and voiding without difficulty. Physical Exam (OB) Vital Signs: Temp Pulse Resp BP Pulse Ox 97.4 F 73 18 127/64 H 95 03/27/19 07:42 03/27/19 07:42 03/27/19 07:42 03/27/19 07:42 03/27/19 07:42 Intake & Output 03/26/19 03/27/19 03/28/19 06:59 06:59 06:59 Intake Total 383 1000 Balance 383 1000 Weight 88.5 kg - PIH/Pre-Eclampsia Clonus: Negative Headache: Absent Epigastric Pain: Yes Visual Changes: No - Lochia Lochia Amount: Small 10-25 ml Lochia Color: Rubra/Red - Abdomen Description: Round Hernia Present: No Fundal Description: Firm, Midline Fundal Height: u/u - u/2 Objective-Diagnostic Laboratory: 03/27/19 06:42 03/27/19 06:42 WBC 9.6 RBC 4.15 Hgb 12.7 Hct 37.2 MCV 90 MCH 30.6 MCHC 34.2 RDW 13.7 Plt Count 191 Assessment and Plan(PN) - Assessment and Plan (1) (spontaneous vaginal delivery) Is this a current diagnosis for this admission?: Yes - Time Spent with Patient Time with patient: Less than 15 minutes Medications reviewed and adjusted accordingly: Yes - Disposition Anticipated Discharge: Home Within: within 24 hours
[2019-03-28] MEDS ORDERED: ACETAMINOPHEN 325 MG TABLET PO PRN (00:59)
[2019-03-28] MEDS ORDERED: OXYCODONE-ACETAMINOPHEN 5-325 MG TABLET PO ONE (03:30)
[2019-03-28] MEDS: IBUPROFEN 800 MG TABLET PO SCH (05:53)
[2019-03-28 07:29] VITALS: BP 112/68
--- NOTE | 2019-03-28 09:38 | PDOC PROGRESS REPORT ---
Subjective-OB Progress Note for:: 03/21/19 Subjective: Doing well, OOB to BR, voiding, eating well, scant lochia Physical Exam (OB) Vital Signs: Temp Pulse Resp BP Pulse Ox 98.0 F 73 16 112/68 100 03/28/19 07:14 03/28/19 07:14 03/28/19 07:14 03/28/19 07:14 03/28/19 07:14 Intake & Output 03/27/19 03/28/19 03/29/19 06:59 06:59 06:59 Intake Total 1000 Balance 1000 - PIH/Pre-Eclampsia Clonus: Negative Headache: Absent Epigastric Pain: Yes Visual Changes: No - Lochia Lochia Amount: Scant < 10 ml Lochia Color: Rubra/Red - Abdomen Description: Soft, Round Hernia Present: No Fundal Description: Firm, Midline Fundal Height: u/u - u/2 Objective-Diagnostic Laboratory: 03/27/19 06:42 Assessment and Plan(PN) - Assessment and Plan (1) (spontaneous vaginal delivery) Is this a current diagnosis for this admission?: Yes - Time Spent with Patient Time with patient: Less than 15 minutes Medications reviewed and adjusted accordingly: Yes - Disposition Anticipated Discharge: Home Within: within 24 hours
--- NOTE | 2019-03-28 09:42 | PDOC DISCHARGE SUMMARY ---
Impression - Admit/DC Date/PCP Admission Date/Primary Care Provider: 03/26/19 02:48 JOVANNY NAVARRO MD Discharge Date: 03/28/19 - Discharge Diagnosis (1) (spontaneous vaginal delivery) Is this a current diagnosis for this admission?: Yes - Additional Information Discharge Diet: As Tolerated, Regular Discharge Activity: Activity As Tolerated, No Lifting Over 10 Pounds, No Lifting/Push/Pulling, Pelvic Rest Referrals: JOVANNY NAVARRO MD [Primary Care Provider] - Home Medications: Ferrous Sulfate [Iron] 1 tab PO DAILY 12/05/18 Vitamin [-U Multiple Vitamin Capsule] 1 tab PO DAILY 12/05/18 HPI Gestational Age: 37.5 Reason(s) for Admission: Onset of Labor Procedures: NST, Ultrasound Intrapartum Procedure(s): Spontaneous Vaginal Delivery Complication(s): Laceration-Periurethral Laceration-Degree: 1st - female, 7 pounds, 8/9 Hospital Course Hospital Course: routine Results Laboratory Results: WBC 9.6 10^3/uL (4.0-10.5) 03/27/19 06:42 RBC 4.15 10^6/uL (3.72-5.28) 03/27/19 06:42 Hgb 12.7 g/dL (12.0-15.5) 03/27/19 06:42 Hct 37.2 % (36.0-47.0) 03/27/19 06:42 MCV 90 fl (80-97) 03/27/19 06:42 MCH 30.6 pg (27.0-33.4) 03/27/19 06:42 MCHC 34.2 g/dL (32.0-36.0) 03/27/19 06:42 RDW 13.7 % (11.5-14.0) 03/27/19 06:42 Plt Count 191 10^3/uL (150-450) 03/27/19 06:42 Lymph % (Auto) 7.0 % (13-45) L 03/26/19 02:55 [place] % (Auto) 3.5 % (3-13) 03/26/19 02:55 Eos % (Auto) 0.1 % (0-6) 03/26/19 02:55 Baso % (Auto) 0.4 % (0-2) 03/26/19 02:55 Absolute Neuts (auto) 12.3 10^3/uL (1.7-8.2) H 03/26/19 02:55 Absolute Lymphs (auto) 1.0 10^3/uL (0.5-4.7) 03/26/19 02:55 Absolute Monos (auto) 0.5 10^3/uL (0.1-1.4) 03/26/19 02:55 Absolute Eos (auto) 0.0 10^3/uL (0.0-0.6) 03/26/19 02:55 Absolute Basos (auto) 0.1 10^3/uL (0.0-0.2) 03/26/19 02:55 Seg Neutrophils % 89.0 % (42-78) H 03/26/19 02:55 Urine Color YELLOW 03/25/19 22:05 Urine Appearance SLIGHTLY-CLOUDY 03/25/19 22:05 Urine pH 6.0 (5.0-9.0) 03/25/19 22:05 Ur Specific [place] 1.012 03/25/19 22:05 Urine Protein 30 mg/dL (NEGATIVE) H 03/25/19 22:05 Urine Glucose (UA) 50 mg/dL (NEGATIVE) H 03/25/19 22:05 Urine Ketones NEGATIVE mg/dL (NEGATIVE) 03/25/19 22:05 Urine Blood MODERATE (NEGATIVE) H 03/25/19 22:05 Urine Nitrite NEGATIVE (NEGATIVE) 03/25/19 22:05 Urine Bilirubin NEGATIVE (NEGATIVE) 03/25/19 22:05 Urine Urobilinogen NEGATIVE mg/dL (<2.0) 03/25/19 22:05 Ur Leukocyte Esterase NEGATIVE (NEGATIVE) 03/25/19 22:05 Urine Ascorbic Acid NEGATIVE (NEGATIVE) 03/25/19 22:05 Urine Opiates Screen UNCONFIRMED POSITIVE 03/25/19 22:05 Urine Methadone Screen NEGATIVE 03/25/19 22:05 Ur Barbiturates Screen NEGATIVE 03/25/19 22:05 Ur Phencyclidine Scrn NEGATIVE 03/25/19 22:05 Ur Amphetamines Screen NEGATIVE 03/25/19 22:05 U Benzodiazepines Scrn NEGATIVE 03/25/19 22:05 Urine Cocaine Screen NEGATIVE 03/25/19 22:05 U Marijuana (THC) Screen NEGATIVE 03/25/19 22:05 Blood Type A POSITIVE 03/26/19 02:55 Antibody Screen NEGATIVE 03/26/19 02:55 Plan Health Concerns: jennifer Plan of Treatment: home with baby Goals: no complications Time Spent: Less than 30 Minutes
[2019-03-28] MEDS: SENNOSIDES/DOCUSATE 8.6-50 MG 1 EACH TABLET PO SCH (10:10)
[2019-03-28] MEDS: PRENATAL VITAMIN W DHA CAPSULE PO SCH (10:10)
[2019-03-28] MEDS: FERROUS SULFATE 325 MG TABLET PO SCH (10:10)
[2019-03-28] MEDS: DOCUSATE SODIUM 100 MG CAPSULE PO SCH (10:10)
[2019-03-28] MEDS: FAMOTIDINE 20 MG TABLET PO SCH (10:11)
== END 2019-03-28 14:48 | disposition home or self-care (01) | DRG 806 ==
LOC: LC 21:56 → LR 03-26 02:48 → 2S 03-26 11:20
PROVIDERS: ADMIT Obstetrics & Gynecology Gynecology; ATTEND Obstetrics & Gynecology Gynecology
PROC: 10E0XZZ Delivery of Products of Conception, External Approach (ICD-10-PCS; principal; 2019-03-26)
PROC: 0HQ9XZZ Repair Perineum Skin, External Approach (ICD-10-PCS; 2019-03-26)
PROC: 3E0R3GC Introduction of Other Therapeutic Substance into Spinal Canal, Percutaneous Approach (ICD-10-PCS; 2019-03-28)
DX: O71.82 Other specified trauma to perineum and vulva (principal); O98.32 Other infections with a predominantly sexual mode of transmission complicating childbirth; Z37.0 Single live birth; G97.1 Other reaction to spinal and lumbar puncture; A60.00 Herpesviral infection of urogenital system, unspecified; Z3A.37 37 weeks gestation of pregnancy; Z79.899 Other long term (current) drug therapy; Y83.8 Other surgical procedures as the cause of abnormal reaction of the patient, or of later complication, without mention of misadventure at the time of the procedure; Y70.1 Therapeutic (nonsurgical) and rehabilitative anesthesiology devices associated with adverse incidents; Y92.239 Unspecified place in hospital as the place of occurrence of the external cause; Z88.4 Allergy status to anesthetic agent; O99.013 Anemia complicating pregnancy, third trimester
CPT/HCPCS: 36415; 62273; 80307; 81005; 85025; 85027; 86592; 86850; 86900; 86901; J2370; J2590; J3010; J3490

== ENCOUNTER 2020-01-17 03:53 | Emergency (ER) | payer MEDICAID, OTHER ==
[2020-01-17 04:19] VITALS: BP 128/76
--- NOTE | 2020-01-17 06:24 | ER Document Report ---
ED ENT - General Stated Complaint: SORE THROAT/HEADACHE Time Seen by Provider: 01/17/20 06:23 Primary Care Provider: JOVANNY NAVARRO MD [Primary Care Provider] - Follow up as needed Notes: CHIEF COMPLAINT: Sore throat and headache for 3 days HPI: 24-year-old female presenting for sore throat and headache for 3 days no voice change no fever. Daughter also sick. Has been taking Tylenol at home without resolution of symptoms. Denies neck stiffness. Denies cough. Headache is frontal in nature. ROS: See HPI - all other systems were reviewed and are otherwise negative Constitutional: no fever Eyes: no drainage, no blurred vision ENT: no runny nose, + sore throat Cardiovascular: no chest pain Resp: no SOB, no cough GI: no vomiting, no diarrhea, no abdominal pain : no dysuria Integumentary: no rash Allergy: no hives Musculoskeletal: no extremity pain or swelling Neurological: no numbness/tingling, no weakness, positive headache MEDICATIONS: I agree with the patient medications as charted by the RN. ALLERGIES: I agree with the allergies as charted by the RN. PAST MEDICAL HISTORY/PAST SURGICAL HISTORY: Reviewed and agree as charted by RN. SOCIAL HISTORY: Reviewed and agree as charted by RN. FAMILY HISTORY: No significant familial comorbid conditions directly related to patient complaint EXAM: Reviewed vital signs as charted by RN. CONSTITUTIONAL: Alert and oriented and responds appropriately to questions. Well-appearing; well-nourished HEAD: Normocephalic; atraumatic EYES: PERRL; Conjunctivae clear, sclerae non-icteric ENT: normal nose; no rhinorrhea; moist mucous membranes; pharynx without lesions noted, no uvula edema or deviation, no tonsillar hypertrophy, phonation normal NECK: Supple without meningismus; non-tender; no cervical lymphadenopathy, no masses CARD: RRR; no murmurs, no clicks, no rubs, no gallops; symmetric distal pulses RESP: Normal chest excursion without splinting or tachypnea; breath sounds clear and equal bilaterally; no wheezes, no rhonchi, no rales, pulse oximetry 98% on room air not hypoxic ABD/GI: Normal bowel sounds; non-distended; soft, non-tender, no rebound, no guarding; no palpable organomegaly or masses. BACK: The back appears normal and is non-tender to palpation, there is no CVA tenderness EXT: Normal ROM in all joints; non-tender to palpation; no cyanosis, no effusions, no edema SKIN: Normal color for age and race; warm; dry; good turgor; no acute lesions noted NEURO: Moves all extremities equally; Motor and sensory function intact PSYCH: The patient's mood and manner are appropriate. Grooming and personal hygiene are appropriate. MDM: 24-year-old female sore throat and headache for 3 days. No neck stiffness to suggest meningitis. No pharyngeal erythema rapid strep was negative. 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 Her daughter is also sick with vomiting, this is likely a viral etiology. She was given precautions as she does not request a COVID test today and declines one when offered. TRAVEL OUTSIDE OF THE [place] IN LAST 30 DAYS: No - Related Data Allergies/Adverse Reactions: epinephrine [Epinephrine] Allergy (Verified 03/25/19 22:06) Past Medical History - Social History Smoking Status: Unknown if Ever Smoked Family History: Reviewed & Not Pertinent Renal/ Medical History: Denies: Hx Peritoneal Dialysis Past Surgical History: Reports: Hx Orthopedic Surgery - Immunizations Hx Diphtheria, Pertussis, Tetanus Vaccination: Yes Physical Exam - Vital signs Vitals: Temp Pulse Resp BP Pulse Ox 97.9 F 66 16 128/76 H 100 01/17/20 04:17 01/17/20 04:17 01/17/20 04:17 01/17/20 04:17 01/17/20 04:17 Course - Vital Signs Vital signs: Temp Pulse Resp BP Pulse Ox 97.9 F 66 16 128/76 H 100 01/17/20 04:17 01/17/20 04:17 01/17/20 04:17 01/17/20 04:17 01/17/20 04:17 Discharge - Discharge Clinical Impression: Sore throat (viral) Condition: Stable Disposition: HOME, SELF-CARE Additional Instructions: Continue both Motrin and Tylenol for sore throat and headache. You have declined cover testing today. Your strep test was negative. Follow-up with your primary care provider for reevaluation of symptoms call for appointment Referrals: JOVANNY NAVARRO MD [Primary Care Provider] - Follow up as needed
== END 2020-01-17 06:35 | disposition home or self-care (01) ==
LOC: ER 03:53
DX: J02.9 Acute pharyngitis, unspecified (principal); R51 Headache
CPT/HCPCS: 87070; 87880; 99283